=== PATIENT | male | born 1945 ===

== ENCOUNTER 2022-11-27 09:42 | Emergency (ER) | payer MEDICARE ==
[~2022-11-27] VITALS: Ht 162.6 cm; Wt 64.4 kg
--- NOTE | 2022-11-27 09:49 | NUR ---
patient in 4B c/o Left foot pain from playing tennis x1 week ago. Patient in room waiting to see ER physician.
--- NOTE | 2022-11-27 09:56 | NUR ---
patient being seen and evaluated by Dr. Villarreal.
[2022-11-27] MEDS ORDERED: ASPI81TA31 (09:59)
[2022-11-27] MEDS ORDERED: TUMERIC (09:59)
[2022-11-27] MEDS ORDERED: METFORMIN (09:59)
[2022-11-27] MEDS ORDERED: SUCR1TAB (09:59)
[2022-11-27] MEDS ORDERED: VITAMIN D3 (09:59)
[2022-11-27] MEDS ORDERED: CALC250T2 (09:59)
[2022-11-27] MEDS ORDERED: MULT-594 (09:59)
[2022-11-27] MEDS ORDERED: VOLTAREN (09:59)
[2022-11-27] MEDS ORDERED: FAMO-284 (09:59)
[2022-11-27] MEDS ORDERED: LEVOTHYROXINE (09:59)
[2022-11-27] MEDS ORDERED: ROSUVASTATIN (10:00)
[2022-11-27] MEDS ORDERED: NAPR220T66 (10:00)
--- NOTE | 2022-11-27 10:40 | NUR ---
Crutches and Domo wrap provided with education on use. [facility] states has used domo wrap bandage before for a previous injury. Given discharge instructions signed and understood.
[2022-11-27 10:43] VITALS: BP 123/62
== END 2022-11-27 10:45 | disposition home or self-care (01) ==
LOC: ER 09:42
DX: S93.602A Unspecified sprain of left foot, initial encounter (principal); Z79.82 Long term (current) use of aspirin; Z79.899 Other long term (current) drug therapy; X58.XXXA Exposure to other specified factors, initial encounter; Y93.89 Activity, other specified; Y92.89 Other specified places as the place of occurrence of the external cause; Y99.8 Other external cause status
CPT/HCPCS: 73630; A4663